=== PATIENT | male | born 2000 | race Two or more races ===

== ENCOUNTER 2019-09-15 10:07 | Day surgery (SDC) | payer BC ==
[~2019-09-15 10:07] MED LIST: Buffered Lidocaine 1% SYRIN* 1 ML/SYRINGE INTRADERM ONE; Lactated Ringers 1000 ML Bag* 1,000 ML IV SCH
[2019-09-15] MEDS ORDERED: Lidocaine 2% PF * 5 ML VIAL ONE (12:00)
[2019-09-15] MEDS ORDERED: Rocuronium* 10 MG/ML VIAL ONE (12:00)
[2019-09-15] MEDS ORDERED: Propofol* 10 MG/ML 20 ML BTL ONE (12:00)
[2019-09-15] MEDS ORDERED: Midazolam* 1 MG/ML 2 ML VIAL (2 MG) ONE (12:01)
[2019-09-15] MEDS ORDERED: fentaNYL* 50 MCG/ML 2 ML VIAL (100 MCG VIAL) ONE (12:01)
[2019-09-15] MEDS ORDERED: Oxymetazoline 0.05% NASAL SPR* 15 ML BTL ONE (13:10)
[2019-09-15] MEDS ORDERED: Bacitracin OINTMENT* 0.5% 0.5 oz TUBE ONE (13:10)
[2019-09-15] MEDS ORDERED: Lidocaine 2% w/ EPI 1:200,000* 20 ML SDV VIAL ONE (13:10)
[2019-09-15] MEDS ORDERED: Ondansetron INJ* 2 MG/ML VIAL ONE (13:42)
[2019-09-15] MEDS ORDERED: Metoclopramide IV* 5 MG/ML 2 ML VIAL ONE (13:42)
[2019-09-15] MEDS ORDERED: Dexamethasone IV* 4 MG/ML 1 ML (4 MG) ONE (13:42)
[2019-09-15] MEDS ORDERED: Ketorolac INJ* 30 MG/ML 1 ML VIAL ONE (13:42)
[2019-09-15] MEDS ORDERED: Naloxone* 0.4 MG/ML 1 ML VIAL IV PRN (13:49)
[2019-09-15] MEDS ORDERED: Acetaminophen TAB* 325 MG PO PRN (13:49)
[2019-09-15] MEDS ORDERED: fentaNYL* 50 MCG/ML 2 ML VIAL (100 MCG VIAL) IV PRN (13:49)
[2019-09-15] MEDS ORDERED: oxyCODONE TAB* 5 MG TAB PO PRN (13:49)
[2019-09-15] MEDS ORDERED: DiMENhydriNATE IV* 50 MG/ML VIAL IV PUSH PRN (13:49)
[2019-09-15 15:56] VITALS: BP 149/88
--- NOTE | 2019-09-15 22:40 | OP ---
DATE OF OPERATION: 09/15/19 - [facility] DATE OF : 89 SURGEON: Moody Cano MD PRE-OP DIAGNOSES: Deviated nasal septum, nasal dyspnea. POST-OP DIAGNOSES: Deviated nasal septum, nasal dyspnea. OPERATIVE PROCEDURE: Septoplasty and SMR of turbinates. INDICATIONS: This 19-year-old with nasal dyspnea after traumatic injury, obvious deviated nasal septum with compensatory hypertrophy of the turbinates, failing medical management. DESCRIPTION OF PROCEDURE: The patient was taken to the operating room. The patient was intubated with LMA. Nose was decongested with Afrin placed pledgets. Subsequently, a right hemitransfixion incision was created. Mucoperichondrial flap was elevated. The quadrangular cartilage was disarticulated along the vomer ethmoidal complex and along the maxillary crest. The quadrangular cartilage was scored and small portion of the maxillary crest was resected out. This allowed swinging of the cartilage in place. Portion of the vomer ethmoidal complex which had a large spur was also removed. Once the cartilage was in the midline, it was secured in place with multiple mattress sutures of chromic. The hemitransfixion incision was closed with chromic. Lina splints were applied, it was secured with silk. We then turned our attention to the inferior turbinates. Small incision was made in the inferior turbinate mucosa. Submucosal elevation was carried out and subsequently submucosal tissue was removed. Cautery was then used for hemostasis of the submucosal tissue. Once this was done on both sides, the patient was awakened and sent to recovery room in stable condition. Instrument and sponge count was correct. Blood loss was minimal. [id number]/[facility] #: [id number] [facility]
== END 2019-09-15 15:30 | disposition home or self-care (01) ==
LOC: OR 10:07
PROVIDERS: ATTEND Otolaryngology
DX: J34.2 Deviated nasal septum (principal); J34.3 Hypertrophy of nasal turbinates
CPT/HCPCS: A9270-GY; J1100; J1885; J2250; J2405; J2704; J2765; J3010